=== PATIENT | male | born 1990 | race African-American/Black ===

== ENCOUNTER 2017-08-12 23:29 | Emergency (ER) | payer OTHER ==
[2017-08-13 00:38] VITALS: BP 118/81; PULSE 75; TEMP 98.3; BMI 23.6
[2017-08-13] MEDS ORDERED: DIPHTH,PERTUSS(ACELL),TET 0.5 ML DISP.SYRIN IM ONE (01:35)
--- NOTE | 2017-08-13 02:18 | PDOC ---
History of Present Illness - General Chief Complaint: Injury Stated Complaint: INJURY ON LT HAND Time Seen by Provider: 08/13/17 01:24 Past History - Past Medical History Allergies/Adverse Reactions: Allergies Allergy/AdvReac Type Severity Reaction Status Date / Time ibuprofen [From Motrin] Allergy Verified 08/13/17 00:36 Home Medications: Ambulatory Orders Clindamycin [Cleocin -] 300 mg PO TID #30 capsule 08/13/17 - Suicide/Smoking/Psychosocial Hx Smoking History: Never smoked Have you smoked in the past 12 months: No Information on smoking cessation initiated: No Hx Alcohol Use: No Drug/Substance Use Hx: No *Physical Exam - Vital Signs Last Vital Signs Temp Pulse Resp BP Pulse Ox 98.3 F 75 14 118/81 100 08/13/17 00:36 08/13/17 00:36 08/13/17 00:36 08/13/17 00:36 08/13/17 00:36 ED Treatment Course - RADIOLOGY Radiology Studies Ordered: Category Date Time Status HAND- LEFT [RAD] Stat Radiology 08/13/17 01:34 Taken Medical Decision Making - Medical Decision Making 08/13/17 03:48 27-year-old male presents with left hand puncture wound. Vitals are unremarkable. Patient able to fully extend, flex, abduct, and abduct fingers. He has normal sensory exam. Wound is greater than 24 hours old, and thus was not amenable to repair. On exploration of the wound, after irrigation, there does not appear to be any tendinous injury. He does not have pain on passive extension, swelling of his fingers, or tenderness along the tendon sheath in any digits. Will obtain an x-ray to rule out foreign body. Will also cover the patient with clindamycin given location of wound and tenderness on exam. 08/13/17 04:50 X-ray on my read with no foreign bodies. Patient ordered for clindamycin and tramadol for pain. I put out a call to the orthopedic surgeons on-call (Wendi/ Mj) to discuss antibiotic coverage and follow-up planning however the patient requests discharge now as he has work in an hour. I discussed with the patient the importance of following up with the hand doctor today or tomorrow given the location of the injury on his hand and my concern for infection. I also offered him a work note so that he could follow up with the doctor as soon as possible. He then states "you're going to make me lose my job." I expressed my concern about the infection, and he agreed to a work note in order to be able to follow up. 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 I discussed the physical exam findings, ancillary test results and final diagnoses with the patient. I answered all of the patient's questions. The patient was satisfied with the care received and felt comfortable with the discharge plan and treatment plan. The patient will call their primary care physician within 24 hours to arrange follow-up and will return to the Emergency Department with any new, persistent or worsening symptoms. *DC/Admit/Observation/Transfer Diagnosis at time of Disposition: Puncture wound - Discharge Dispostion Disposition: HOME Admit: No - Prescriptions Prescriptions: Clindamycin [Cleocin -] 300 mg PO TID #30 capsule - Referrals Referrals: Jose Raemsh MD [Staff Physician] - - Patient Instructions Printed Discharge Instructions: DI for Puncture Wound Additional Instructions: Call Dr. Ramesh's office for a follow up appointment today 08/13/17 or tomorrow for your hand injury. You must follow up with Dr. Ramesh as soon as possible for this injury as there is a high likelihood of infection. Take your antibiotics as prescribed. Return to the emergency department if you have any new, worsening , or concerning symptoms. - Post Discharge Activity Forms/Work/School Notes: Back to Work - Attestations Physician Attestion: 08/13/17 04:42 I, Dr. Mago Michel MD, attest that this document has been prepared under my direction and personally reviewed by me in its entirety. I further attest, that it accurately reflects all work, treatment, procedures and medical decision -making performed by me.
[2017-08-13] MEDS ORDERED: CLINDAMYCIN HCL 300 MG CAPSULE PO ONE (04:17)
[2017-08-13] MEDS ORDERED: CLINDAMYCIN HCL 150 MG CAPSULE (FP) ONE (04:23)
[2017-08-13] MEDS ORDERED: traMADol HCL 50 MG TABLET PO ONE (04:30)
[2017-08-13] MEDS ORDERED: traMADol HCL 50 MG TABLET ONE ×2 (04:34→04:35)
== END 2017-08-13 04:49 | disposition home or self-care (01) ==
LOC: JER 23:29
PROC: 3E0234Z Introduction of Serum, Toxoid and Vaccine into Muscle, Percutaneous Approach (ICD-10-PCS; principal; 2017-08-12)
DX: S61.432A Puncture wound without foreign body of left hand, initial encounter (principal); X58.XXXA Exposure to other specified factors, initial encounter; Y93.9 Activity, unspecified; Y92.9 Unspecified place or not applicable
CPT/HCPCS: 73130-TC-LT; 90715; 99281-25

== ENCOUNTER 2017-09-13 12:09 | Emergency (ER) | payer SELFPAY ==
[2017-09-13 12:20] VITALS: BP 124/75; PULSE 61; TEMP 98.6; BMI 23.9
--- NOTE | 2017-09-13 13:19 | PDOC ---
History of Present Illness - General Chief Complaint: Injury Stated Complaint: INJURY Time Seen by Provider: 09/13/17 12:30 - History of Present Illness Initial Comments: 09/13/17 13:42 CHIEF COMPLAINT: fall/shoulder pain HISTORY OF PRESENT ILLNESS: 27 yo M with no significant PMH presents to fast track with pain to left shoulder/back s/p fall. Patient reports that he slipped on stairs and landed on his R back. Patient states that he can move his arm "but it hurts a lot." He denies any trauma to any other part of the body, denies LOC, nausea, vomiting. PAST MEDICAL HISTORY: Denies past medical history FAMILY HISTORY: Denies SOCIAL HISTORY: Denies tobacco, alcohol, illicit drug use. SURGICAL HISTORY: Denies ALLERGIES: ibuprofen REVIEW OF SYSTEMS General/Constitutional: Denies fever or chills. Denies weakness, weight change. HEENT: Denies change in vision. Denies ear pain or discharge. Denies sore throat. Cardiovascular: Denies chest pain or shortness of breath. Respiratory: Denies cough, wheezing, or hemoptysis. Gastrointestinal: Denies nausea, vomiting, diarrhea. Genitourinary: Denies dysuria, frequency, or change in urination. Musculoskeletal: R shoulder and back pain. Denies joint or muscle swelling or pain. PHYSICAL EXAM General Appearance: Well-appearing, appropriately dressed. No apparent distress. HEENT: EOMI, PERRLA. No conjunctival pallor. No photophobia, scleral icterus. Respiratory/Chest: Lungs CTAB. Cardiovascular: RRR. S1, S2. Gastrointestinal/Abdominal: Normal bowel sounds. Abdomen soft, non-distended. No tenderness or rebound tenderness. No organomegaly, pulsatile mass, guarding , hernia, hepatomegaly, splenomegaly. Musculoskeletal/Extremities: Tenderness to R trapezius on palpation. FROM of all extremities, normal capillary refill. Pelvis Stable. No CVA tenderness. No tenderness to extremities, pedal edema, swelling, erythema or deformity. Integumentary: Appropriate color, dry, warm. 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 Fully oriented, alert. Appropriate mood/affect. Motor strength 5/5. No appreciable EOM palsy, facial droop or sensory deficit. Past History - Past Medical History Allergies/Adverse Reactions: Allergies Allergy/AdvReac Type Severity Reaction Status Date / Time ibuprofen [From Motrin] Allergy Verified 09/13/17 12:16 Home Medications: Ambulatory Orders Cyclobenzaprine HCl [Flexeril 10 mg] 10 mg PO BID PRN #14 tablet 09/13/17 Asthma: Yes COPD: No - Suicide/Smoking/Psychosocial Hx Smoking History: Never smoked Have you smoked in the past 12 months: No Information on smoking cessation initiated: No Hx Alcohol Use: No Drug/Substance Use Hx: No Substance Use Type: None *Physical Exam - Vital Signs Last Vital Signs Temp Pulse Resp BP Pulse Ox 98.6 F 61 18 124/75 100 09/13/17 12:18 09/13/17 12:18 09/13/17 12:18 09/13/17 12:18 09/13/17 12:18 ED Treatment Course - RADIOLOGY Radiology Studies Ordered: Category Date Time Status SCAPULA [RAD] Stat Radiology 09/13/17 13:12 Ordered SHOULDER-RIGHT [RAD] Stat Radiology 09/13/17 13:12 Ordered SPINE-LUMBAR SACRAL [RAD] Stat Radiology 09/13/17 12:27 Stop Req Medical Decision Making - Medical Decision Making 09/13/17 13:48 27 yo M with no significant PMH presents to fast track with pain to left shoulder/back s/p fall. shoulder/scapula x-ray x-rays negative for fx or dislocation cyclobenzaprine rx sent to pharm shoulder sling applied *DC/Admit/Observation/Transfer Diagnosis at time of Disposition: Pain of right scapula - Discharge Dispostion Disposition: HOME Condition at time of disposition: Stable - Prescriptions Prescriptions: Cyclobenzaprine HCl [Flexeril 10 mg] 10 mg PO BID PRN #14 tablet PRN Reason: Muscle Spasms - Referrals Referrals: Dm Barker MD [Staff Physician] - - Patient Instructions Additional Instructions: Please take medication as prescribed; do NOT drink alcohol, drive, or operate machinery while taking this medication. If symptoms persist for more than 4-5 days, please follow up with orthopedics for further evaluation. If you develop any new or worsening symptoms, please return to the ER. - Post Discharge Activity
== END 2017-09-13 13:56 | disposition home or self-care (01) ==
LOC: JERFT 12:09
DX: M25.511 Pain in right shoulder (principal); W18.39XA Other fall on same level, initial encounter; Y93.89 Activity, other specified; Y92.9 Unspecified place or not applicable
CPT/HCPCS: 73010-TC; 73030-TC-RT; 99281-25

== ENCOUNTER 2018-09-16 20:26 | Emergency (ER) | payer BC ==
--- NOTE | 2018-09-16 20:53 | PDOC ---
Rapid Medical Evaluation Chief Complaint: Respiratory Time Seen by Provider: 09/16/18 20:51 Medical Evaluation: Allergies Allergy/AdvReac Type Severity Reaction Status Date / Time ibuprofen [From Motrin] Allergy Verified 09/13/17 12:16 09/16/18 20:52 I performed a brief in person evaluation. CC: Cough HPI: Pt is a 28 Yo male with a hx of asthma and cough x 8 days. PE: Skin: Clear Lungs: Clear Heart: RRR MS: Moves all extremities without difficulty Neuro: Alert Psych: Appropriate affect Pt is afebrile. I will not order a CXR or influenza swab at this time. Pt will go to [facility] for further evaluation. Discharge Disposition - Diagnosis Bronchitis - Referrals - Patient Instructions - Post Discharge Activity
[2018-09-16 20:54] VITALS: BP 130/82; PULSE 76; TEMP 98.1; BMI 23.6
[2018-09-16] MEDS ORDERED: DEXAMETHASONE LIQUID 0.5 MG/5 ML 240 ML BULK BOTTLE PO ONE (21:34)
--- NOTE | 2018-09-16 21:37 | PDOC ---
History of Present Illness - General Chief Complaint: Respiratory Stated Complaint: SOB Time Seen by Provider: 09/16/18 20:51 - History of Present Illness Initial Comments: 09/16/18 21:35 28-year-old male with a past medical history significant for asthma presents to ER for evaluation of exacerbation of asthma which occurred earlier today. He has no systemic symptoms. Past History - Past Medical History Allergies/Adverse Reactions: Allergies Allergy/AdvReac Type Severity Reaction Status Date / Time ibuprofen [From Motrin] Allergy Verified 09/13/17 12:16 Home Medications: Ambulatory Orders Albuterol Sulfate Inhaler - [Ventolin HFA Inhaler -] 1 - 2 inh PO Q4H #1 inhaler 09/16/18 Asthma: Yes COPD: No - Suicide/Smoking/Psychosocial Hx Smoking History: Never smoked Have you smoked in the past 12 months: No Information on smoking cessation initiated: No Hx Alcohol Use: No Drug/Substance Use Hx: Yes Substance Use Type: None Review of Systems - Review of Systems Constitutional: No: Fever Respiratory: Yes: Cough, Shortness of Breath *Physical Exam - Vital Signs Last Vital Signs Temp Pulse Resp BP Pulse Ox 98.1 F 76 18 130/82 99 09/16/18 20:53 09/16/18 20:53 09/16/18 20:53 09/16/18 20:53 09/16/18 20:53 - Physical Exam Comments: 09/16/18 21:35 HEAD: NC/AT EYES: Conjuntiva clear Ears: Canals and TM's normal NOSE: No d/c THROAT: Moist mucous membrances, oral pharanx clear, uvula midline NECK: Supple without adenopathy CARDIAC: S1 S2 LUNGS: CTA Full and Equal breath sounds ABDOMEN: Soft NT ND MS: Full ROM in all joints without edema NEUROLOGIC: No gross sensory or motor deficits, NVID SKIN: Normal color and temperature no lesions or rashes Moderate Sedation - Procedure Monitoring Vital Signs: Procedure Monitoring Vital Signs Temperature 98.1 F 09/16/18 20:53 Pulse Rate 76 09/16/18 20:53 Respiratory Rate 18 09/16/18 20:53 Blood Pressure 130/82 09/16/18 20:53 O2 Sat by Pulse Oximetry (%) 99 09/16/18 20:53 Medical Decision Making - Medical Decision Making 09/16/18 21:35 Benign exam this 28-year-old male with a history of asthma. No wheezing full equal breath sounds bilaterally. I will treat him with Decadron. He does state he needs a refill on his albuterol which I am happy to give him today *DC/Admit/Observation/Transfer Diagnosis at time of Disposition: Asthma Diagnosis at time of Disposition: (Ruled Out): Bronchitis - Discharge Dispostion Disposition: HOME Condition at time of disposition: Stable Decision to Admit order: No - Prescriptions Prescriptions: Albuterol Sulfate Inhaler - [Ventolin HFA Inhaler -] 1 - 2 inh PO Q4H #1 inhaler - Referrals Referrals: Mil Stoddard MD [Staff Physician] - - Patient Instructions Printed Discharge Instructions: DI for Asthma -- Adult, Asthma -- Adult Additional Instructions: Albuterol was refilled. He was giving a dose of a long-acting steroid in the emergency room which helped her breathing. Return to the emergency room should symptoms worsen or go unresolved. Please follow-up with pulmonology in one to 2 days for further evaluation and treatment options of your asthma. - Post Discharge Activity
[2018-09-16] MEDS ORDERED: DEXAMETHASONE SOD PHOSPHATE 4 MG/1 ML VIAL ONE (21:47)
== END 2018-09-16 21:54 | disposition home or self-care (01) ==
LOC: JERFT 20:26
DX: J45.909 Unspecified asthma, uncomplicated (principal)
CPT/HCPCS: 99281-25

== ENCOUNTER 2019-07-01 21:56 | Emergency (ER) | payer BC ==
[2019-07-01 22:14] VITALS: BMI 26.1
--- NOTE | 2019-07-01 22:27 | PDOC ---
*Physical Exam - Vital Signs Last Vital Signs Temp Pulse Resp BP Pulse Ox 99.6 F 97 H 18 129/80 98 07/01/19 22:10 07/01/19 22:10 07/01/19 22:10 07/01/19 22:10 07/01/19 22:10 ED Treatment Course - LABORATORY CBC & Chemistry Diagram: 07/01/19 23:20 07/01/19 23:20 Medical Decision Making - Medical Decision Making 07/01/19 22:27 Patient seen by the advanced practice provider under my direct supervision. Ancillary testing reviewed as necessary. I agree with plan as outlined by the advanced practice provider. Discharge - Discharge Information Problems reviewed: Yes Clinical Impression/Diagnosis: Abdominal pain Condition: Stable Disposition: HOME - Additional Discharge Information Prescriptions: Albuterol Sulfate Inhaler - [Ventolin HFA Inhaler -] 1 - 2 inh PO Q4H #1 inhaler Pantoprazole Sodium [Protonix -] 20 mg PO DAILY #30 tablet.ec - Follow up/Referral Referrals: Bill Hernandez MD [Staff Physician] - - Patient Discharge Instructions Patient Printed Discharge Instructions: DI for Dyspepsia Additional Instructions: Please take medications as prescribed. Follow up with your primary care doctor within the next week. If you develop any new chest pain, shortness of breath, persistent vomiting, worsening pain, or any new or concerning symptoms, please return to the ER immediately. - Post Discharge Activity
[2019-07-01] MEDS ORDERED: PANTOPRAZOLE SODIUM 40 MG VIAL IVPUSH ONE (22:35)
[2019-07-01] MEDS ORDERED: FAMOTIDINE 20 MG/50 ML IVPB 20 MG/50 ML MG IVPB ONE ×2 (22:35→23:32)
--- NOTE | 2019-07-01 22:35 | PDOC ---
History of Present Illness - General Chief Complaint: Nausea/Vomiting Stated Complaint: CHEST PAIN/VOMITTING Time Seen by Provider: 07/01/19 22:25 - History of Present Illness Initial Comments: 07/01/19 22:31 CHIEF COMPLAINT: chest pain HISTORY OF PRESENT ILLNESS: 29 yo M with hx of asthma presents to ED with chest pain x 2 weeks. Patient describes the pain as a squeezing/itching pain and that it moves from left side of his chest to the center of his chest. Patient states he thought it was gas because when he burps it kind of relieves the pressure. Patient states he is a pescatarian but does eat a lot of fried foods. 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 PAST MEDICAL HISTORY: Denies past medical history FAMILY HISTORY: Denies SOCIAL HISTORY: Daily marijuana use. Denies tobacco, alcohol. SURGICAL HISTORY: Denies ALLERGIES: ibuprofen REVIEW OF SYSTEMS General/Constitutional: Denies fever or chills. Denies weakness, weight change. HEENT: Denies change in vision. Denies ear pain or discharge. Denies sore throat. Cardiovascular: Chest pain x 2 weeks. Respiratory: Denies cough, wheezing, or hemoptysis. Gastrointestinal: Denies nausea, vomiting, diarrhea or constipation. Denies rectal bleeding. Genitourinary: Denies dysuria, frequency, or change in urination. Musculoskeletal: Denies joint or muscle swelling or pain. Denies neck or back pain. Skin and breasts: Denies rash or easy bruising. Neurologic: Denies headache, vertigo, loss of consciousness, or loss of sensation. Psychiatric: Denies depression or anxiety. PHYSICAL EXAM General Appearance: Well-appearing, appropriately dressed. No apparent distress , no intoxication. HEENT: EOMI, PERRLA, normal ENT inspection, normal voice, TMs normal, pharynx normal. No conjunctival pallor. No photophobia, scleral icterus. Neck: Supple. Trachea midline. No tenderness, rigidity, carotid bruit, stridor , lymphadenopathy, or thyromegaly. Respiratory/Chest: Lungs CTAB. No shortness of breath, chest tenderness, respiratory distress, accessory muscle use. No crackles, rales, rhonchi, stridor , wheezing, dullness Cardiovascular: RRR. S1, S2. No JVD, murmur, bradycardia, tachycardia. Vascular Pulses: Dorsalis-Pedis (R): 2+, Dorsalis-Pedis (L): 2+ Gastrointestinal/Abdominal: TTP to epigastrum. Normal bowel sounds. Abdomen soft, non-distended. No tenderness or rebound tenderness. No organomegaly, pulsatile mass, guarding, hernia, hepatomegaly, splenomegaly. Lymphatic: No adenopathy, tenderness. Musculoskeletal/Extremities: Normal inspection. FROM of all extremities, normal capillary refill. Pelvis Stable. No CVA tenderness. No tenderness to extremities, pedal edema, swelling, erythema or deformity. Integumentary: Appropriate color, dry, warm. 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 Fully oriented, alert. Appropriate mood/affect. Motor strength 5/5. No appreciable EOM palsy, facial droop or sensory deficit. Past History - Past Medical History Allergies/Adverse Reactions: Allergies Allergy/AdvReac Type Severity Reaction Status Date / Time ibuprofen [From Motrin] Allergy Verified 07/01/19 22:14 Home Medications: Ambulatory Orders Albuterol Sulfate Inhaler - [Ventolin HFA Inhaler -] 2 inh PO Q4H #1 inh Pantoprazole Sodium [Protonix -] 20 mg PO DAILY #30 tablet.ec 07/02/19 Asthma: Yes COPD: No - Psycho Social/Smoking Cessation Hx Smoking History: Current every day smoker Have you smoked in the past 12 months: No Information on smoking cessation initiated: No Hx Alcohol Use: No Drug/Substance Use Hx: Yes ([facility]) Substance Use Type: None *Physical Exam - Vital Signs Last Vital Signs Temp Pulse Resp BP Pulse Ox 99.6 F 97 H 18 129/80 98 07/01/19 22:10 07/01/19 22:10 07/01/19 22:10 07/01/19 22:10 07/01/19 22:10 ED Treatment Course - LABORATORY CBC & Chemistry Diagram: 07/01/19 23:20 07/01/19 23:20 Medical Decision Making - Medical Decision Making 07/02/19 01:10 29 yo M with hx of asthma presents to ED with chest pain x 2 weeks. -ekg -labs -pepcid, pantoprazole labs - bili 1.4 Abdomen US eval for gallstones Patient reports feeling better after administration of meds. 07/02/19 01:33 Awaiting US results. Patient signed out to resident MD Jimenez. Discharge - Discharge Information Problems reviewed: Yes Clinical Impression/Diagnosis: Abdominal pain Qualifiers: Abdominal location: unspecified location Qualified Code(s): R10.9 - Unspecified abdominal pain Condition: Stable Disposition: HOME - Admission No - Additional Discharge Information Prescriptions: Albuterol Sulfate Inhaler - [Ventolin HFA Inhaler -] 2 inh PO Q4H #1 inh Pantoprazole Sodium [Protonix -] 20 mg PO DAILY #30 tablet.ec - Follow up/Referral Referrals: Bill Hernandez MD [Staff Physician] - - Patient Discharge Instructions Patient Printed Discharge Instructions: DI for Dyspepsia Additional Instructions: Please take medications as prescribed. Follow up with your primary care doctor within the next week. If you develop any new chest pain, shortness of breath, persistent vomiting, worsening pain, or any new or concerning symptoms, please return to the ER immediately. - Post Discharge Activity
[2019-07-01] MEDS ORDERED: SODIUM CHLORIDE 0.9% 500 ML INFUS.BAG IV ONE (23:15)
[2019-07-01 23:30] LABS: BASO % 0.5 % (0-2.0); EOS % 0.1 % (0-4.5); HEMATOCRIT 47.5 % (35.4-49); LYMPH % 5.9 % (8-40); MCH 29.3 pg (25.7-33.7); MCHC 33.6 g/dl (32.0-35.9); MEAN CELL VOLUME 87.1 fl (80-96); MEAN PLT VOLUME 9.7 fl (7.5-11.1); MONO % 5.6 % (3.8-10.2); NEUT % 87.9 % (42.8-82.8); PLATELET COUNT 185 K/MM3 (134-434); RBC 5.45 M/mm3 (4.00-5.60); RDW 13.7 % (11.9-15.9); WHITE BLOOD COUNT 13.9 K/mm3 (4.0-10.0)
[2019-07-01] MEDS ORDERED: PANTOPRAZOLE SODIUM 40 MG VIAL ONE (23:32)
[2019-07-01] MEDS ORDERED: KETOROLAC TROMETHAMINE 30 MG/1 ML VIAL IVPUSH ONE (23:38)
[2019-07-01] MEDS ORDERED: KETOROLAC TROMETHAMINE 30 MG/1 ML VIAL ONE (23:48)
[2019-07-01 23:57] LABS: ALBUMIN 4.4 g/dl (3.4-5.0); BILIRUBIN,TOTAL 1.4 mg/dL (0.2-1); BLOOD UREA NITROGEN 7.7 mg/dL (7-18); CALCIUM 9.4 mg/dL (8.5-10.1); CREATININE 1.2 mg/dL (0.55-1.3); POTASSIUM 3.6 mmol/L (3.5-5.1); TOT PROT 8.8 g/dl (6.4-8.2)
--- NOTE | 2019-07-02 01:36 | PDOC ---
*Physical Exam - Vital Signs Last Vital Signs Temp Pulse Resp BP Pulse Ox 99.6 F 97 H 18 129/80 98 07/01/19 22:10 07/01/19 22:10 07/01/19 22:10 07/01/19 22:10 07/01/19 22:10 ED Treatment Course - LABORATORY CBC & Chemistry Diagram: 07/01/19 23:20 07/01/19 23:20 - ADDITIONAL ORDERS Additional order review: Laboratory Results 07/01/19 23:20 Sodium 135 L Potassium 3.6 Chloride 98 Carbon Dioxide 29 Anion Gap 8 BUN 7.7 Creatinine 1.2 Est GFR (CKD-EPI)AfAm 92.83 Est GFR (CKD-EPI)NonAf 80.09 Random Glucose 106 Calcium 9.4 Total Bilirubin 1.4 H AST 18 ALT 34 Alkaline Phosphatase 64 Total Protein 8.8 H Albumin 4.4 07/01/19 23:20 RBC 5.45 MCV 87.1 MCHC 33.6 RDW 13.7 MPV 9.7 Neutrophils % 87.9 H Lymphocytes % 5.9 L Monocytes % 5.6 Eosinophils % 0.1 Basophils % 0.5 - Medications Given in the ED: ED Medications Discontinued Medications Generic Name Dose Route Start Last Admin Trade Name Freq PRN Reason Stop Dose Admin Famotidine/Sodium Chloride 20 mg in 50 mls @ 100 mls/hr 07/01/19 22:35 23:47 Pepcid 20 Mg Premixed Ivpb - IVPB 07/01/19 23:04 100 mls/hr ONCE ONE Administration Ketorolac Tromethamine 30 mg 07/01/19 23:38 07/01/19 23:55 Toradol Injection - IVPUSH 07/01/19 23:39 30 mg ONCE ONE Administration Pantoprazole Sodium 40 mg 07/01/19 22:35 07/01/19 23:47 Protonix Iv IVPUSH 07/01/19 22:36 40 mg ONCE ONE Administration Sodium Chloride 1,000 ml 07/01/19 23:15 07/01/19 23:47 Normal Saline - IV 07/01/19 23:16 1,000 ml ONCE ONE Administration Medical Decision Making - Medical Decision Making 07/02/19 01:33 Patient signout taken from JIMBO Prince. Patient is a 29 yo male w/ pmh of asthma pending workup for chest pain and epigastric tenderness. Patient labs significant for elevated bili. Patient pending US evaluation for discharge; reporting resolution of pain at this time. 07/02/19 02:21 US Normal. Patient reporting continued improvement. Patient walking around ED w/ out difficulty at this time, requesting discharge. No concern for acute process. Discharging to home. Discharge - Discharge Information Problems reviewed: Yes Clinical Impression/Diagnosis: Abdominal pain Qualifiers: Abdominal location: unspecified location Qualified Code(s): R10.9 - Unspecified abdominal pain Condition: Stable Disposition: HOME - Additional Discharge Information Prescriptions: Albuterol Sulfate Inhaler - [Ventolin HFA Inhaler -] 1 - 2 inh PO Q4H #1 inhaler Pantoprazole Sodium [Protonix -] 20 mg PO DAILY #30 tablet.ec - Follow up/Referral Referrals: Bill Hernandez MD [Staff Physician] - - Patient Discharge Instructions Patient Printed Discharge Instructions: DI for Dyspepsia Additional Instructions: Please take medications as prescribed. Follow up with your primary care doctor within the next week. If you develop any new chest pain, shortness of breath, persistent vomiting, worsening pain, or any new or concerning symptoms, please return to the ER immediately. - Post Discharge Activity
[2019-07-02 03:26] VITALS: BP 122/78; PULSE 86; TEMP 99.2
--- NOTE | 2019-07-02 13:34 | EKG ---
Test Reason : Blood Pressure : / mmHG Vent. Rate : 101 BPM Atrial Rate : 101 BPM P-R Int : 150 ms QRS Dur : 084 ms QT Int : 328 ms P-R-T Axes : 050 037 029 degrees QTc Int : 425 ms SINUS TACHYCARDIA OTHERWISE NORMAL ECG NO PREVIOUS ECGS AVAILABLE Confirmed by ELEN MILLAN MD ([id number]) on 07/02/2019 1:34:11 PM Referred By: Confirmed By:ELEN MILLAN MD
== END 2019-07-02 02:48 | disposition home or self-care (01) ==
LOC: JER 21:56
PROC: 3E033GC Introduction of Other Therapeutic Substance into Peripheral Vein, Percutaneous Approach (ICD-10-PCS; principal; 2019-07-01)
PROC: 3E033GC Introduction of Other Therapeutic Substance into Peripheral Vein, Percutaneous Approach (ICD-10-PCS; 2019-07-01)
PROC: 3E0333Z Introduction of Anti-inflammatory into Peripheral Vein, Percutaneous Approach (ICD-10-PCS; 2019-07-01)
DX: E80.6 Other disorders of bilirubin metabolism (principal); R10.9 Unspecified abdominal pain; J45.909 Unspecified asthma, uncomplicated; F17.210 Nicotine dependence, cigarettes, uncomplicated; Z88.6 Allergy status to analgesic agent
CPT/HCPCS: 36415; 76705-TC; 80053; 85025; 93005; 93010; 99284-25